=== PATIENT | female | born 1995 | race Caucasian/White ===

== ENCOUNTER 2018-09-29 09:45 | Outpatient (CLI) | payer BC, SELFPAY ==
[2018-09-29 10:21] VITALS: BMI 30.6
[2018-09-29 10:36] LABS: ROM Internal Control Test YES-OK TO RESULT pt. (Internal QC); ROM Patient Test Negative (Negative)
--- NOTE | 2018-09-29 23:47 | OB.TRI.NOTE ---
History of Present Illness Date of Service: 09/29/18 Reason For Visit: R/O ROM Final ROSA: 10/13/18 Gestational age: 38 Weeks and 0 Days Allergies morphine Allergy (Verified 01/04/17 15:40) Other Laboratory Studies: Laboratory Tests 09/29/18 Range/Units 10:10 Vag Amniotic Fld Detect Negative (Negative) NST - FHR Rate Baby A Baseline: 125 Variability:: Moderate Accelerations:: 15 x 15 Decelerations:: Variable NST Reactive:: Yes Uterine Activity:: quiet Impression/Plan Reactive NST for false labor
== END 2018-09-29 10:50 | disposition home or self-care (01) ==
LOC: WPOUT 09:54 → WP 10-01 09:12
PROVIDERS: Family Provider Family Medicine; PCP Family Medicine; Visit Provider Obstetrics & Gynecology
DX: O47.1 False labor at or after 37 completed weeks of gestation (principal); Z3A.38 38 weeks gestation of pregnancy
CPT/HCPCS: 59025; 59050; 84112; 99218; G0378

== ENCOUNTER 2018-10-09 22:27 | Inpatient (IN) | payer BC, SELFPAY ==
[2018-10-09 23:01] VITALS: BMI 31.0
[2018-10-09] MEDS: Lactated Ringers 1,000 ML 50 ML IV (23:03)
[2018-10-09 23:20] LABS: Absolute Lymphocyte Count 2.06 X10^3/ul (0.83-4.51); Absolute Neutrophil Count 12.1 X10^3/uL (2.0-7.7); Basophil# 0.01 X10^3/uL; Basophil% 0.1 % (0-1); Eosinophil# 0.14 X10^3/uL; Eosinophils% 0.9 % (0-5); Hematocrit 33.8 % (37-47); Hemoglobin 10.8 g/dl (12.0-15.0); Lymphocyte # 2.06 X10^3/ul (4.0); Lymphocyte % 13.3 % (19-41); Mean Corpuscular Hgb 27.6 pg (27.0-32.0); Mean Corpuscular Volume 86.2 fL (81-99); Mean Platelet Vol. 9.1 fl (6.2-12.0); Monocyte# 1.09 X10^3/uL; Neutrophil # 12.09 X10^3/uL (2.7-7.7); Neutrophil % 78.1 % (47-70); Platelet Count 263 K/mm3 (150-450); RBC Distribution Width CV 13.7 % (11.6-14.6); RBC Distribution Width SD 43.1 fl (35.1-43.9); Red Blood Count 3.92 M/mm3 (4.2-5.4); White Blood Count 15.5 K/mm3 (4.4-11.0)
[2018-10-09 23:23] LABS: Differential Indicated SCAN CRITERIA MET; POSITIVE COUNT NO; POSITIVE DIFFERENTIAL NO; POSITIVE MORPHOLOGY YES
[2018-10-10] MEDS: Lactated Ringers 1,000 ML 50 ML IV ×3 (00:47→11:25)
[2018-10-10] MEDS: fentaNYL-bupivacaine (epidural) 100 ML BAG EPIDURAL ×3 (01:02→10:31)
[2018-10-10] MEDS: 0.9% Saline Lock 10 ML Syringe IV ×2 (04:47→13:27)
[2018-10-10] MEDS: Ondansetron 4 MG/2 ML Vial IV (04:47)
[2018-10-10] MEDS: Oxytocin 30 units/NS 500 ml 30 UNITS/500 ML IV.SOLN IV (07:11)
--- NOTE | 2018-10-10 08:33 | PCM.HP.OB ---
- Problem List (1) 39 weeks gestation of Status: Acute (2) Uterine contractions Status: Acute (3) Primiparous Status: Acute (4) Genital herpes Status: Acute (5) Choroid plexus cyst of fetus on ultrasound Status: Acute (6) Echogenic intracardiac focus of fetus on ultrasound Status: Acute History Date of Admission: 10/09/18 Final ROSA: 10/13/18 Gestational age: 39 Weeks and 4 Days History of this : This is a 23 year-old, G 1, P 0, at 39 weeks gestational age who presented in labor. Medical History: Medical History (Last Updated 10/10/18 @ 08:36 by Annalise Correa DO) Abnormal ultrasound O28.3 Genital herpes A60.00 History of wisdom tooth extraction K08.409 Surgical History: Surgical History (Last Updated 10/10/18 @ 08:36 by Annalise Correa DO) History of tonsillectomy Z90.89 Allergies morphine Allergy (Verified 10/09/18 23:02) Other Home Medications: Home Medications Multivitamin [Flintstones] 1 each PO DAILY 09/29/18 Valacyclovir HCl [Valtrex] 500 mg PO DAILY 09/29/18 Smoking Status: Never smoker Number of Fetus(es): 1 Heart Tracin/mod almita/+accels/+occasional early decel TOCO Analysis: Ctx's q 2-4 min with coupling History Past Pregnancies: Past Pregnancies Delivery Date Name GA/Weeks Outcome Route Weight Gender Labor Length Anesthesia Delivery Location Provider FOB Labs: GBS positive 36 wk growth scan: EFW 3247 g 86% Hgb 11.5, Plt 301 1 hr GTT 68 GC/CT neg UDS neg Sequential screen neg Syphilis NR RI Hep B neg HIV NR Urine cx neg US with bilateral choroid plexus cysts noted and an ECF Expected Infant Delivery Method: Spontaneous Vaginal Review of Systems Gynecological: Reports: - - +Ctx's Physical Exam General: Alert, No apparent distress HEENT: Atraumatic Lungs: - - No increased resp effort Abdomen: Gravid Extremities:: No edema Neurological: Neuro grossly intact MANAGER REGULATORY: Normal external genitalia Estimated gestational size: Appropriate for gestational size Presentation: Cephalic Cervix Dilation (cm): 8 - per supervisor area/Plan All Active Problems (Last Updated 10/10/18 @ 08:36 by Annalise Correa DO) 39 weeks gestation of (Acute) Uterine contractions (Acute) Primiparous (Acute) Genital herpes (Acute) Choroid plexus cyst of fetus on ultrasound (Acute) Echogenic intracardiac focus of fetus on ultrasound (Acute) This is a 23 year-old, G 1, P 0, at 39 weeks gestational age who was admitted overnight in labor. - Was started on pitocin given she has been 8 cm dilated for several hours - Possible OP position, continue with position changes - GBS positive, PCN - S/p epidural - Routine intrapartum care
--- NOTE | 2018-10-10 08:46 | HP.PCM_ITS ---
- Problem List (1) 39 weeks gestation of Status: Acute (2) Uterine contractions Status: Acute (3) Primiparous Status: Acute (4) Genital herpes Status: Acute (5) Choroid plexus cyst of fetus on ultrasound Status: Acute (6) Echogenic intracardiac focus of fetus on ultrasound Status: Acute History Date of Admission: 10/09/18 Final ROSA: 10/13/18 Gestational age: 39 Weeks and 4 Days History of this : This is a 23 year-old, G 1, P 0, at 39 weeks gestational age who presented in labor. Medical History: Medical History (Last Updated 10/10/18 @ 08:36 by Annalise Correa DO) Abnormal ultrasound O28.3 Genital herpes A60.00 History of wisdom tooth extraction K08.409 Surgical History: Surgical History (Last Updated 10/10/18 @ 08:36 by Annalise Correa DO) History of tonsillectomy Z90.89 Allergies morphine Allergy (Verified 10/09/18 23:02) Other Home Medications: Home Medications Multivitamin [Flintstones] 1 each PO DAILY 09/29/18 Valacyclovir HCl [Valtrex] 500 mg PO DAILY 09/29/18 Smoking Status: Never smoker Number of Fetus(es): 1 Heart Tracin/mod almita/+accels/+occasional early decel TOCO Analysis: Ctx's q 2-4 min with coupling History Past Pregnancies: Past Pregnancies Delivery Date Name GA/Weeks Outcome Route Weight Gender Labor Length Anesthesia Delivery Location Provider FOB Labs: GBS positive 36 wk growth scan: EFW 3247 g 86% Hgb 11.5, Plt 301 1 hr GTT 68 GC/CT neg UDS neg Sequential screen neg Syphilis NR RI Hep B neg HIV NR Urine cx neg US with bilateral choroid plexus cysts noted and an ECF Expected Infant Delivery Method: Spontaneous Vaginal Review of Systems Gynecological: Reports: - - +Ctx's Physical Exam General: Alert, No apparent distress HEENT: Atraumatic Lungs: - - No increased resp effort Abdomen: Gravid Extremities:: No edema Neurological: Neuro grossly intact [employer] SERVICE SUPERVISOR: Normal external genitalia Estimated gestational size: Appropriate for gestational size Presentation: Cephalic Cervix Dilation (cm): 8 - per title coordinator/Plan All Active Problems (Last Updated 10/10/18 @ 08:36 by Annalise Correa DO) 39 weeks gestation of (Acute) Uterine contractions (Acute) Primiparous (Acute) Genital herpes (Acute) Choroid plexus cyst of fetus on ultrasound (Acute) Echogenic intracardiac focus of fetus on ultrasound (Acute) This is a 23 year-old, G 1, P 0, at 39 weeks gestational age who was admitted overnight in labor. - Was started on pitocin given she has been 8 cm dilated for several hours - Possible OP position, continue with position changes - GBS positive, PCN - S/p epidural - Routine intrapartum care
[2018-10-10] MEDS: Oxytocin 30 units/NS 500 ml 30 UNITS/500 ML IV.SOLN 334 UNITS IV (11:49)
--- NOTE | 2018-10-10 12:09 | PCM.OPRPT ---
Problem List (1) 39 weeks gestation of Status: Acute (2) Uterine contractions Status: Acute (3) Primiparous Status: Acute (4) Genital herpes Status: Acute (5) Choroid plexus cyst of fetus on ultrasound Status: Acute (6) Echogenic intracardiac focus of fetus on ultrasound Status: Acute Report of Operation Date of Procedure: 10/10/18 Pre-Operative Diagnosis: 39 week gestation, spontaneous labor Post-Operative Diagnosis: As above Surgery/Procedure Performed:: Description of Surgical Findings:: Patient complete and pushing for less than 1 hour. Head delivered MEÑO, followed by shoulders and body without any force or delay. VMI delivered atraumatically and placed on mother's abdomen. Light meconium noted. Cord clamped and cut after 60 sec delay by FOB. Placenta delivered intact with fundal massage. Pitocin started. Placenta normal appearing with a 3 vessel cord. Uterus explored and no retained products noted. Lower uterine segment slightly boggy, and firmed with uterine massage. Bleeding hemostatic. Bilateral labial lacerations and a right 1st degree vaginal laceration noted, and repaired in usual fashion with 3-0 vicryl. Bleeding hemostatic. EBL 250 cc. Type of Anesthesia:: Epidural Specimen's removed: Placenta Drains: Hardy catheter Estimated Blood Loss (mL): 250 Description of Procedure: See above for description of procedure under surgical findings Grafts/Implants Used: None - Complications None - Admit VTE Documentation VTE Present on Admission: No VTE Mechan Device Prophylaxis: None VTE Pharm Prophylaxis ordered?: No Vaginal Delivery Maternal Presentation: Active Labor Amniotic Membrane Rupture Type: Spontaneous Amniotic Fluid Description: Clear - Clear upon rupture, Lightly stained meconium - At time of delivery Final ROSA: 10/13/18 Gestational age: 39 Weeks and 4 Days Date of Procedure: 10/10/18 Pre-Operative Diagnosis: 39 weeks, spontaneous labor Post-Operative Diagnosis: 39 weeks, spontaneous labor Surgery/ Procedure Performed: Spontaneous Vaginal Delivery Type of Anesthesia: Epidural Presentation: MEÑO Placental Delivery Description: Expressed Cord Vessel Description: 3 Vessels Cord Entanglement: None Drain: Hardy to straight drain Estimated Blood Loss: 250 Infant A gender: Male (1 minute): 9 (5 minute): 9 Episiotomy Description: None Laceration: Vaginal Extension/lac Medications given after delivery: IV Pitocin Complications: None
[2018-10-10] MEDS: Oxytocin 30 units/NS 500 ml 30 UNITS/500 ML IV.SOLN 167 UNITS IV (12:19)
[2018-10-10 16:30] VITALS: BP 120/57; PULSE 87; RESP 16; TEMP 36.4; O2SAT 97
[2018-10-10] MEDS: Ibuprofen 600 MG Tablet PO (16:43)
[2018-10-10 21:05] VITALS: BP 104/68; PULSE 75; RESP 18; TEMP 36.1; O2SAT 99
[2018-10-10] MEDS: Acetaminophen 500 MG Tablet 1000 MG PO (21:14)
[2018-10-11 00:45] VITALS: BP 84/42; PULSE 73; RESP 18; TEMP 36.4; O2SAT 97
[2018-10-11 04:23] VITALS: BP 100/54; PULSE 68; RESP 18; TEMP 36.7; O2SAT 97
[2018-10-11] MEDS: Senna/Docusate Sodium 1 Tablet PO (07:38)
[2018-10-11] MEDS: Ibuprofen 600 MG Tablet PO (07:39)
[2018-10-11 08:16] VITALS: BP 100/87; PULSE 90; RESP 18; TEMP 36.4; O2SAT 96
--- NOTE | 2018-10-11 09:26 | PCM.PN.OB ---
Patient Problems: Active and Suspected Problems (Last Updated 10/10/18 @ 08:36 by Annalise Correa DO) 39 weeks gestation of (Acute) Uterine contractions (Acute) Primiparous (Acute) Genital herpes (Acute) Choroid plexus cyst of fetus on ultrasound (Acute) Echogenic intracardiac focus of fetus on ultrasound (Acute) Subjective: Pt doing well. Ambulating and voiding without difficulty. Lianet reg diet without N/V. Denies CP, SOB, lightheadedness, dizziness, leg pain. Lochia normal. She desires to go home today - Physical Exam General: Alert, No apparent distress HEENT: Atraumatic Lungs: - - No increased resp effort Abdomen: Soft, - - ATTP, FF Extremities: No edema, No Calf Tenderness Skin: No rashes Neurological: Neuro grossly intact Psych/Mental Status: Normal Affect, Appropriate Vital Signs Temp Pulse Resp BP Pulse Ox 97.5 F L 90 18 100/87 H 96 10/11/18 08:16 10/11/18 08:16 10/11/18 08:16 10/11/18 08:16 10/11/18 08:16 Oxygen Delivery Method Room Air Weight: 186 lb 9.6 oz Body Mass Index (BMI) 31.0 Intake and Output for Last 24 Hours 10/09/18 10/10/18 10/11/18 23:59 23:59 23:59 Intake Total 4791 / 4791 Output Total 3200 / 3200 Balance 1591 / 1591 Medical Necessity - Tobacco Use Smoking Status: Never smoker Assessment/Plan All Active Problems (Last Updated 10/10/18 @ 08:36 by Annalise Correa DO) 39 weeks gestation of (Acute) Uterine contractions (Acute) Primiparous (Acute) Genital herpes (Acute) Choroid plexus cyst of fetus on ultrasound (Acute) Echogenic intracardiac focus of fetus on ultrasound (Acute) PPD#1 s/p - Doing well today and pt desires to go home - D/c today and discharge instructions reviewed
--- NOTE | 2018-10-11 09:29 | DCINST_ITS ---
Discharge Diet: No Restrictions Discharge Activity: May Drive, May Shower, May Take a Tub Bath May resume sexual activity in: 6 weeks Weight Bearing Status: Full weight bearing Lifting Restrictions: None Call your doctor if you observe: Fever of 101 or Higher, Inability to urinate, Inability to have a bowel movement, Using more than one pad per hour, Shortness of breath, Dizziness, Chest pain, Increased palpitations (irregular heartbeat), Calf discomfort, Uncontrolled pain Cleanse incision/area with: Soap & Water Additional Instructions: If you experience any of the following, contact your healthcare provider. * Bleeding that soaks a pad every hour for 2 hours * Fever 100.4 or higher * Unrelieved incision or abdominal pain * Swelling, redness, discharge or bleeding from your incision or episiotomy site * Your incision begins to separate * Problems urinating (including inability to urinate or burning while urinating). * Visual changes * Severe headache * Flu-like symptoms * Pain or redness in one of both of your breasts * Pain, warmth, tenderness or swelling in your legs, especially the calf area * Frequent nausea and vomiting * Symptoms of depression or anxiety If you experience any of the following, call 911 or go to the nearest Emergency Room. * Chest pain * Problems breathing * Seizure activity * Partial or complete paralysis of a body part, slurred speech, weakness or drooping of the face, or a sudden inability to walk or hold your balance Allergies/Adverse Reactions: Allergies morphine Allergy (Verified 10/09/18 23:02) Other Medications to take at Discharge Multivitamin [Flintstones] 1 each PO DAILY 09/29/18 Valacyclovir HCl [Valtrex] 500 mg PO DAILY 09/29/18 Please Follow Up With: Annalise Correa DO When: 6 weeks for visit. In 1-2 weeks if you desire Primary Care Physician: Delores Vyas DO [Primary Care Provider] - Test Results: Test results from this visit will be discussed in further detail at your follow- up appointment, if applicable. Proposed Discharge Date: 10/11/18
[2018-10-11 13:52] VITALS: BP 106/58; PULSE 93; RESP 20; TEMP 36.5; O2SAT 94
== END 2018-10-11 15:00 | disposition home or self-care (01) | DRG 806 ==
PROVIDERS: Admitting Provider Obstetrics & Gynecology; Family Provider Family Medicine; PCP Family Medicine; Referring Provider Obstetrics & Gynecology; Visit Provider Obstetrics & Gynecology
DX: O42.92 Full-term premature rupture of membranes, unspecified as to length of time between rupture and onset of labor (principal); O98.32 Other infections with a predominantly sexual mode of transmission complicating childbirth; Z37.0 Single live birth; O99.824 Streptococcus B carrier state complicating childbirth; O77.0 Labor and delivery complicated by meconium in amniotic fluid; O70.0 First degree perineal laceration during delivery; A60.00 Herpesviral infection of urogenital system, unspecified; O35.8XX0 Maternal care for other (suspected) fetal abnormality and damage, not applicable or unspecified; Z3A.39 39 weeks gestation of pregnancy
CPT/HCPCS: 59025; 59050; 85025; 86850; 86900; 99218; J7120; A4216; G0378; J2405

== ENCOUNTER 2020-05-07 01:54 | Emergency (ER) | payer BC, SELFPAY ==
[2020-05-07 01:56] VITALS: BP 117/60; PULSE 95; RESP 16; TEMP 36.6; O2SAT 98; BMI 31.8
--- NOTE | 2020-05-07 02:06 | ED.VIS.GEN ---
History of Present Illness Chief Complaint: Nausea/Vomiting/Diarrhea Informant: Patient Narrative: Patient stated she ate rotisserie chicken around 6 PM and soon after started having nausea vomiting diarrhea. Approximately 10 episodes of each. Nonbloody. No sick contacts. Her stomach feels queasy and sore from puking. Denies any chronic medical problems. No other coronavirus symptoms. She tried some Pepto-Bismol but had difficulty keeping it down. She has been trying to drink Gatorade. Denies . Past Medical History - Allergies and Home Meds Allergies/Adverse Reactions: Allergies morphine Allergy (Verified 05/07/20 01:55) Other Primary Care Physician: Delores Mandel DO [Primary Care Provider] - Prior records reviewed: Yes Past Medical History: None Surgical History: - - Reviewed Smoking Status: Former smoker Alcohol: None Drugs: None Review of Systems General: Denies: Chills, Fever, Sweats Eyes: Denies: Visual changes - bilaterally, Diplopia ENT: Denies: Rhinorrhea, Sore throat Cardiovascular: Denies: Chest pain, Palpitations Respiratory: Denies: Dyspnea, Cough, Dyspnea on exertion Gastrointestinal: Reports: Nausea, Vomiting, Diarrhea. Denies: Abdominal pain, Melena, Hematochezia Genitourinary: Denies: Dysuria, Hematuria, Frequency Musculoskeletal: Denies: Back pain, Extremity Pain Skin: Denies: Rash, Wounds Neurological: Denies: Headache, Weakness, Numbness Physical Exam Vital Signs/Narrative: Vital Signs Temp Pulse Resp BP Pulse Ox 05/07/20 01:56 97.8 F 95 16 117/60 98 General: Well nourished, Well developed, No Acute Distress Head: Normocephalic, Atraumatic Eyes: Perrl, EOMI ENT: Moist mucous membranes, No rhinorrhea Neck: Supple, Nontender Cardiovascular: Regular rate, Regular rhythm, No murmurs Respiratory: No distress, CTA bilaterally, Chest nontender Abdomen: Soft, Nontender, Nondistended, Normal bowel sounds Back: Nontender, Normal Inspection Extremities: Nontender, No edema Skin: Normal color, No rash Neurological: Alert, Oriented x3, Cranial nerves II-XII grossly intact, Normal Strength, Normal Sensation Psychological: Normal affect, Normal Mood Diagnostic/Tx/Re-eval - Medical Decision Making given Toradol IV fluids Zofran Imodium. [place] much better after treatment. To follow-up as an outpatient. Likely food poisoning versus gastro enteritis. ED Disposition - Plan for ED Patient: Disposition: Home or Assisted Living Diagnosis: Food poisoning Instructions: ED Food Poison Or Gastroenteritis Prescriptions: Ondansetron [Zofran Odt] 8 mg PO Q8H PRN PRN #20 tab PRN Reason: Nausea Transmission Status: Received by [id number] Referrals: Delores Mandel DO [Primary Care Provider] -
[2020-05-07] MEDS: 0.9% Normal Saline 1,000 ML 1000 ML IV (03:16)
[2020-05-07] MEDS: Ondansetron 4 MG/2 ML Vial IV (03:17)
[2020-05-07] MEDS: Ketorolac 15 MG/ML Vial IV (03:17)
[2020-05-07] MEDS: Loperamide 2 MG Capsule 4 MG PO (04:08)
[2020-05-07 04:12] VITALS: BP 114/67; PULSE 81; RESP 18; O2SAT 99
== END 2020-05-07 04:15 | disposition home or self-care (01) ==
LOC: ED 02:41
PROVIDERS: Emergency Provider Emergency Medicine; PCP Family Medicine
DX: A05.9 Bacterial foodborne intoxication, unspecified (principal); Z87.891 Personal history of nicotine dependence
CPT/HCPCS: 96374; 96375; 99284; J7030; A4216; J2405

== ENCOUNTER 2020-07-14 09:47 | Outpatient (RCR) | payer BC, SELFPAY | END 2020-08-03 23:59 | LOC: EMPH 09:47 | PROVIDERS: Referring Provider Family Medicine Geriatric Medicine; Visit Provider Family Medicine Geriatric Medicine | DX: Z03.818 Encounter for observation for suspected exposure to other biological agents ruled out (principal) | CPT/HCPCS: 87426 ==

== ENCOUNTER 2020-11-21 10:14 | Emergency (ER) | payer BC, MEDICAID, SELFPAY ==
[2020-11-21 10:15] VITALS: BP 117/68; PULSE 88; RESP 14; TEMP 36.1; O2SAT 98; BMI 29.2
[2020-11-21 10:50] LABS: Absolute Lymphocyte Count 1.13 X10^3/uL (0.83-4.51); Absolute Neutrophil Count 2.9 X10^3/uL (2.0-7.7); Basophil# 0.03 X10^3/uL; Basophil% 0.6 % (0-1); Eosinophil# 0.04 X10^3/uL; Eosinophils% 0.9 % (0-5); Hematocrit 44.4 % (37-47); Hemoglobin 14.7 g/dL (12.0-15.0); Lymphocyte # 1.13 X10^3/ul (0.83-4.51); Lymphocyte % 24.4 % (19-41); Mean Corp Hgb Conc 33.1 g/dL (32-36); Mean Corpuscular Hgb 30.1 pg (27.0-32.0); Mean Platelet Vol. 8.6 fl (6.2-12.0); Monocyte# 0.53 X10^3/uL; Monocyte% 11.4 % (0-10); NRBC Flagged by Analyzer 0 % (0-5); Neutrophil # 2.89 X10^3/uL (2.7-7.7); Neutrophil % 62.5 % (47-70); Platelet Count 256 K/mm3 (150-450); RBC Distribution Width CV 11.6 % (11.6-14.6); RBC Distribution Width SD 38.6 fl (35.1-43.9); Red Blood Count 4.88 M/mm3 (4.2-5.4); White Blood Count 4.6 K/mm3 (4.4-11.0)
[2020-11-21] MEDS: Ketorolac 15 MG/ML Vial IV (10:50)
[2020-11-21] MEDS: 0.9% Normal Saline 1,000 ML 1000 ML IV (10:50)
[2020-11-21] MEDS: Ondansetron 4 MG/2 ML Vial IV (10:50)
[2020-11-21 10:57] LABS: Mucous, Urine 0 SEEN /hpf (<or=2+)
[2020-11-21 11:00] LABS: Color, Urine Yellow (Yellow); Glucose, Dipstick Normal (Normal); Ketone-Dipstick Negative (Negative); Leukocyte Esterase-Dipstick 25 /ul (Negative); Nitrite-Dipstick Negative (Negative); Occult Blood-Urine 250 /ul (Negative); Protein-Dipstick 15 mg/dl (Negative); Specific Gravity, Urine 1.015 (1.002-1.030); Urine Bilirubin Dipstick Negative (Negative); Urine Clarity Sl. Cloudy (Clear); Urine Urobilinogen Normal (Normal)
[2020-11-21 11:06] LABS: ALB/GLOB Ratio 1.1 RATIO (0.9-2.4); AST(SGOT) 20 U/L (15-37); Alanine Aminotransfer ALT/SGPT 19 U/L (13-56); Albumin, Serum 3.6 g/dL (3.2-5.0); Alkaline Phosphatase 61 U/L (45-117); Anion Gap 2 (5-15); BUN 9 mg/dL (7-18); BUN/Creat Ratio 12.6 RATIO (10-20); Calcium,Total 8.2 mg/dL (8.5-10.1); Chloride 107 mmol/L (98-107); Creatinine, Serum 0.71 mg/dL (0.55-1.02); EST Glomerular Filtration Rate 107 mL/min (>60); Est Glom Filt Rate - Afr Amer 130 mL/min (>60); Estimated Creatinine Clearance 109.94 ml/min; Globulin 3.3 g/dL (2.2-4.2); Glucose 91 mg/dL (74-106); Lipase 60 U/L (73-393); Potassium 3.3 mmol/L (3.5-5.1); Protein, Total 6.9 g/dL (6.4-8.2); Sodium Level 140 mmol/L (136-145)
[2020-11-21 11:06] LABS: Bacteria 1+ /hpf (None Seen); Red Blood Cells-Urine 25-50 SEEN /hpf (0-5); Squamous Epithelial Cells - UA 0-5 SEEN /hpf (5-10); White Blood Cells 0-5 SEEN /hpf (0-5)
[2020-11-21 11:07] LABS: Internal QC Validated? YES +Cl - CLEAR BKGD; Pregnancy, Urine Negative Negative
--- NOTE | 2020-11-21 11:13 | ED.VIS.GI ---
HPI HPI - GI History of Present Illness Chief Complaint: Flank Pain Narrative Narrative: Patient presenting for evaluation secondary to nausea vomiting diarrhea and flank pain. Patient states that in the last 24 hours she developed significant nausea and vomiting. She reports that she has had multiple episodes of nonbloody nonbilious emesis. Patient also states that she has had multiple episodes of loose watery diarrhea. Patient states that that was associated with some crampy abdominal pain, and now she has more of a suprapubic and right flank pain that will come and go with no exacerbating relieving factors. Unfortunately this also was associated with the patient having an onset of her menses. She states that she has very irregular periods because she has the Nexplanon implant. Patient states that this menses is slightly heavier than typical. Patient denies presence of fevers she denies any sick contact she denies any recent antibiotic exposures hospital admissions assisted exposures or recent travel. Review of systems is otherwise negative. [facility] Medical History Abnormal ultrasound Genital herpes Home Medications ondansetron 8 mg PO Q8H PRN PRN #20 tab 05/07/20 [Rx Last Taken Unknown] naproxen 500 mg PO BID PRN #20 tab 11/21/20 [Rx Last Taken Unknown] ondansetron 4 mg PO Q8H PRN PRN #10 tab 11/21/20 [Rx Last Taken Unknown] Allergy/AdvReac Type Severity Reaction Status Date / Time morphine Allergy Other Verified 11/21/20 10:15 Surgical History History of tonsillectomy History of wisdom tooth extraction Social History Smoking Status: Former smoker ROS ROS ED Constitutional Constitutional ED: Denies chills or fever(s) ENT ENT ED: Denies sore throat Cardiovascular Cardiovascular: Denies chest pain Respiratory/Chest Respiratory/Chest: Denies cough or dyspnea Gastrointestinal Gastrointestinal: Reports abdominal pain, diarrhea, nausea and vomiting Genitourinary Genitourinary ED: Reports other Details: Vaginal bleeding and onset of menses Musculoskeletal Musculoskeletal: Denies myalgias Integumentary Denies rash Neurologic Neurologic: Denies paresthesias or weakness Psychiatric Psychiatric: Denies depression Endocrine Endocrinology: Denies polyuria Hematologic/Lymphatic Hematologic/Lymphatic: Denies easy bleeding or easy bruising Allergic/Immunologic Allergic/Immunologic ED: Denies urticaria EXAM Physical Exam Const Vital Signs: 11/21/20 10:15 Temperature 96.9 F L Temperature Source Temporal Pulse Rate 88 Respiratory Rate 14 Blood Pressure 117/68 Blood Pressure Mean 84 Pulse Ox 98 Oxygen Delivery Method Room Air Positive well nourished and well developed Constitutional Narrative: Well-appearing age-appropriate female sitting upright in the bed no acute distress General Appearance ED: well developed and NAD HEENT Reports dry mucous membranes HEENT Narrative: Mildly dry mucous membranes normocephalic and atraumatic Mouth ED: Yes dry mucous membranes Mouth: dry mucous membranes Eyes EOMs intact bilaterally General Eye ED: Negative for pale conjunctiva or scleral icterus Neck no lymphadenopathy and supple Resp normal respiratory effort and clear to auscultation bilaterally Cardio regular rate, regular rhythm, no murmurs and peripheral pulses 2+ throughout GI non-distended and no masses GI Narrative: Minimal suprapubic tenderness is noted no real laterality, no guarding or rebound tenderness noted. No palpable masses. Palpation: soft; Negative for guarding, rigid or rebound tenderness present Back/Spine no CVA tenderness Extremity full ROM General Extremety ED: Negative for edema General Extremity: Negative for edema Neuro moves all extremities and no sensory deficits noted Sensorium / Orientation: alert, oriented to person, oriented to place and oriented to time Motor Exam: strength 5/5 throughout Psych mental status grossly normal Skin Rashes: no rashes MDM MDM MDM Narrative Medical decision making narrative: Patient presented secondary to nausea and vomiting. She did complain of some abdominal pain this was mainly suprapubic, not really feel that this is a presentation of a kidney stone and do not feel that imaging is indicated. Patient was given Toradol and Zofran and had improvement on reevaluation at 1115. She was given a liter normal saline. CBC was unremarkable no leukocytosis or shift. Chemistry showed modest hypokalemia at 3.3 with maintenance of renal function normal hepatic function normal lipase. Urinalysis does show some blood consistent with the patient's menses no signs of infection. This point I believe the patient likely has gastroenteritis which coincided with the onset of her menses. Patient's I feel at this time does not require imaging and is stable and appropriate for discharge with a course of Zofran and Naprosyn. She was given return instructions. Patient was discharged in stable condition. Lab Data Labs: Laboratory Results - last 24 hr 11/21/20 11/21/20 11/21/20 10:40 10:40 10:50 WBC 4.6 RBC 4.88 Hgb 14.7 Hct 44.4 MCV 91.0 MCH 30.1 MCHC 33.1 RDW Std Deviation 38.6 RDW Coeff of Zafar 11.6 Plt Count 256 MPV 8.6 Immature Gran % (Auto) 0.200 Neut % (Auto) 62.5 Lymph % (Auto) 24.4 [place] % (Auto) 11.4 H Eos % (Auto) 0.9 Baso % (Auto) 0.6 Absolute Neuts (auto) 2.9 Absolute Lymphs (auto) 1.13 Nucleated RBC % 0 Sodium 140 Potassium 3.3 L Chloride 107 Carbon Dioxide 31.0 Anion Gap 2 L BUN 9 Creatinine 0.71 Estim Creat Clear Calc 109.94 Est GFR (MDRD) Af Amer 130 Est GFR (MDRD) Non-Af 107 BUN/Creatinine Ratio 12.6 Glucose 91 Calcium 8.2 L Total Bilirubin 0.50 AST 20 ALT 19 Alkaline Phosphatase 61 Total Protein 6.9 Albumin 3.6 Globulin 3.3 Albumin/Globulin Ratio 1.1 Lipase 60 L Urine Color Yellow Urine Clarity Sl. Cloudy Urine pH 6.0 Ur Specific [place] 1.015 Urine Protein 15 H Urine Glucose (UA) Normal Urine Ketones Negative Urine Occult Blood 250 H Urine Nitrite Negative Urine Bilirubin Negative Urine Urobilinogen Normal Ur Leukocyte Esterase 25 H Urine RBC 25-50 SEEN Urine WBC 0-5 SEEN Ur Squamous Epith Cells 0-5 SEEN Urine Bacteria 1+ Urine Mucus 0 SEEN Urine Test Negative Discharge Plan Triage Chief Complaint: Flank Pain ED Provider: Jorge L Montiel Dx/Rx/DC Orders Clinical Impression: Gastroenteritis Instructions: ED Gastroenteritis, Noninfectious Prescriptions: New ondansetron 4 mg tablet,disintegrating 4 mg PO Q8H PRN PRN (Reason: Nausea) Qty: 10 RF: 0 naproxen 500 mg tablet 500 mg PO BID PRN Qty: 20 RF: 0 No Action ondansetron 4 MG tablet 8 mg PO Q8H PRN PRN (Reason: Nausea) Qty: 20 RF: 0 Primary Care Provider: Delores Mandel Referrals: Delores Mandel, DO [Primary Care Provider] - 3-5 Days if not improving Disposition Disposition: Home, Self Care
[2020-11-21 12:25] VITALS: PULSE 72; RESP 15; O2SAT 99
== END 2020-11-21 12:28 | disposition home or self-care (01) ==
PROVIDERS: Emergency Provider Emergency Medicine; PCP Family Medicine
DX: K52.9 Noninfective gastroenteritis and colitis, unspecified (principal); Z87.891 Personal history of nicotine dependence
CPT/HCPCS: 80053; 81001; 81025; 83690; 85025; 96374; 96375; 99283; J2405

== ENCOUNTER 2021-09-25 00:49 | Emergency (ER) | payer MEDICAID, SELFPAY ==
[2021-09-25 00:50] VITALS: BP 111/69; PULSE 90; RESP 18; TEMP 36.5; O2SAT 95; BMI 34.4
--- NOTE | 2021-09-25 01:00 | ED.VIS.GI ---
HPI HPI - GI History of Present Illness Chief Complaint: Nausea/Vomiting/Diarrhea Informant: patient Abdominal Pain/Flank Pain Onset: Today (About 6-8 hours) Context: Gradual Onset Timing: Continuous Quality: Cramping Location: Diffuse (Across periumbilical area without radiation or migration) Current Severity: Mild Maximum Severity: Mild Worsened by: Nothing Relieved by: Nothing Nausea/Vomiting/Emesis GI Symptom: Positive for Nausea and Vomiting Onset: Today Quality: Positive for Nonbilious; Negative for Blood streaks, Coffee ground and Hematemesis Severity: Severe Diarrhea/Melena/Hematochezia GI Symptom: Positive for Diarrhea; Negative for Melena and Hematochezia Onset: Today Stool Quality: Positive for Loose and Watery; Negative for Mucous, Black and BRB per rectum Severity: Moderate Associated Symptoms Associated Symptoms: Negative for Dysuria, Frequency, Hematuria and Urgency Narrative Narrative: Patient with vomiting and diarrhea all evening and night, having trouble keeping any fluids down because of the vomiting. No fevers. No syncope. Periumbilical abdominal pain has been constant, no worse and no better with anything in particular. Went to a local indoor water park in [place] recently, did not have any suspicious foods or undercooked meats there, no travel out of the country or to the region recently, had 1 glass of wine a day before the onset of symptoms but no other significant alcohol intake. No prior abdominal surgeries. Not that she knows of. No urinary symptoms. No known sick contacts. No recent antibiotics for anything. [facility] Medical History Abnormal ultrasound Genital herpes Home Medications dicyclomine 20 mg PO Q6H PRN PRN #20 capsule 09/25/21 [Rx Last Taken Unknown] ondansetron 8 mg PO Q8H PRN PRN #20 tab 09/25/21 [Rx Last Taken Unknown] Allergy/AdvReac Type Severity Reaction Status Date / Time morphine Allergy Other Verified 11/21/20 10:15 Surgical History History of tonsillectomy History of wisdom tooth extraction Social History (Updated 09/25/21 @ 01:[address] Kailash Hall MD) Smoking Status: Former smoker details: Occasional ROS ROS ED Constitutional Constitutional ED: Denies chills or fever(s) Eyes Eyes: Denies change in vision or diplopia ENT ENT ED: Denies rhinorrhea or sore throat Cardiovascular Cardiovascular: Denies chest pain or palpitations Respiratory/Chest Respiratory/Chest: Denies cough or dyspnea Gastrointestinal Gastrointestinal: Reports as per HPI, abdominal pain, diarrhea, nausea and vomiting Genitourinary Genitourinary ED: Denies dysuria or hematuria Musculoskeletal Musculoskeletal: Denies back pain or neck pain Integumentary Denies abscess or rash Neurologic Neurologic: Denies headache(s), paresthesias or weakness Psychiatric Psychiatric: Denies anxiety or suicidal thoughts EXAM Physical Exam Const Vital Signs: 09/25/21 00:50 Temperature 97.7 F L Temperature Source Oral Pulse Rate 90 Respiratory Rate 18 Blood Pressure 111/69 Blood Pressure Mean 83 Pulse Ox 95 Oxygen Delivery Method Room Air Positive well nourished and well developed General Appearance ED: well developed and NAD HEENT Reports moist mucous membranes normocephalic and atraumatic Eyes PERRL and EOMs intact bilaterally Neck full ROM and supple Resp normal respiratory effort and clear to auscultation bilaterally Cardio regular rate, regular rhythm and no murmurs Rate: Negative for tachycardic GI non-distended GI Narrative: Mild tenderness epigastrium and throughout lower abdomen, nonfocal otherwise. No guarding or rebound tenderness. Auscultation: normoactive bowel sounds Palpation: soft Back/Spine no CVA tenderness General Back: other FROM Extremity normal to inspection General Extremety ED: Negative for edema, pulses abnormal or tenderness General Extremity: Negative for edema or pulses abnormal Neuro oriented x3, CN's II-XII intact bilaterally and no sensory deficits noted Sensorium / Orientation: awake and alert Motor Exam: strength 5/5 throughout Skin no rashes or lesions noted and no wounds MDM MDM MDM Narrative Medical decision making narrative: Symptoms are more consistent with gastroenteritis, but with the upper abdominal pain and tenderness, I ran labs with liver enzymes and lipase, this was all normal except for low potassium at 3.2. Her is negative. She was treated with IV fluids and Zofran, and dicyclomine. She felt much better on reevaluation passed an oral fluid challenge without any emesis, and she was given a potassium pill. I do not think we need to prescribe that for her, if we can control her symptoms I think she will replace potassium on her own as she resumes normal diet. Supportive care advised at this time, she is comfortable discharge home and feels much better. Lab Data Attestation: I reviewed the patient's lab results. Labs: Laboratory Results - last 24 hr 09/25/21 09/25/21 09/25/21 01:14 01:14 01:14 WBC 7.7 RBC 4.32 Hgb 13.5 Hct 38.6 MCV 89.4 MCH 31.3 MCHC 35.0 RDW Std Deviation 35.7 RDW Coeff of Zafar 10.9 L Plt Count 221 MPV 8.6 Immature Gran % (Auto) 0.100 Neut % (Auto) 77.4 H Lymph % (Auto) 13.7 L Bradford % (Auto) 7.1 Eos % (Auto) 1.4 Baso % (Auto) 0.3 Absolute Neuts (auto) 6.0 Absolute Lymphs (auto) 1.06 Nucleated RBC % 0 Sodium 140 Potassium 3.2 L Chloride 110 H Carbon Dioxide 26.0 Anion Gap 4 L BUN 14 Creatinine 0.68 Estim Creat Clear Calc 113.80 Est GFR (MDRD) Af Amer 136 Est GFR (MDRD) Non-Af 112 BUN/Creatinine Ratio 20.6 H Glucose 89 Calcium 8.3 L Total Bilirubin 0.90 AST 13 L ALT 20 Alkaline Phosphatase 48 Total Protein 6.2 L Albumin 3.6 Globulin 2.6 Albumin/Globulin Ratio 1.4 Lipase 77 Serum , Qual NEGATIVE Discharge Plan Triage Chief Complaint: Nausea/Vomiting/Diarrhea ED Provider: Kailash Hall Dx/Rx/DC Orders Clinical Impression: Gastroenteritis, Acute upper abdominal pain Instructions: Viral Gastroenteritis Prescriptions: New ondansetron [ondansetron] 4 MG tablet 8 mg PO Q8H PRN PRN (Reason: Nausea) Qty: 20 RF: 0 dicyclomine 10 MG capsule 20 mg PO Q6H PRN PRN (Reason: abdominal discomfort) Qty: 20 RF: 0 Primary Care Provider: Delores Mandel Referrals: Delores Mandel DO [Primary Care Provider] - 3-5 Days if not improving Disposition Disposition: Home, Self Care
[2021-09-25] MEDS: Ondansetron 4 MG/2 ML Vial IV (01:12)
[2021-09-25] MEDS: 0.9% Normal Saline 1,000 ML 999 ML IV (01:12)
[2021-09-25] MEDS: Dicyclomine 10 MG Capsule 20 MG PO (01:13)
[2021-09-25 01:19] LABS: Absolute Lymphocyte Count 1.06 X10^3/uL (0.83-4.51); Basophil# 0.02 X10^3/uL; Basophil% 0.3 % (0-1); Eosinophil# 0.11 X10^3/uL; Eosinophils% 1.4 % (0-5); Hematocrit 38.6 % (37-47); Hemoglobin 13.5 g/dL (12.0-15.0); Lymphocyte # 1.06 X10^3/ul (0.83-4.51); Lymphocyte % 13.7 % (19-41); Mean Corpuscular Hgb 31.3 pg (27.0-32.0); Mean Corpuscular Volume 89.4 fL (81-99); Mean Platelet Vol. 8.6 fl (6.2-12.0); Monocyte# 0.55 X10^3/uL; Monocyte% 7.1 % (0-10); NRBC Flagged by Analyzer 0 % (0-5); Neutrophil # 5.97 X10^3/uL (2.7-7.7); Neutrophil % 77.4 % (47-70); Platelet Count 221 K/mm3 (150-450); RBC Distribution Width CV 10.9 % (11.6-14.6); RBC Distribution Width SD 35.7 fl (35.1-43.9); Red Blood Count 4.32 M/mm3 (4.2-5.4); White Blood Count 7.7 K/mm3 (4.4-11.0)
[2021-09-25 01:36] LABS: ALB/GLOB Ratio 1.4 RATIO (0.9-2.4); AST(SGOT) 13 U/L (15-37); Alanine Aminotransfer ALT/SGPT 20 U/L (13-56); Albumin, Serum 3.6 g/dL (3.2-5.0); Alkaline Phosphatase 48 U/L (45-117); Anion Gap 4 (5-15); BUN 14 mg/dL (7-18); BUN/Creat Ratio 20.6 RATIO (10-20); Calcium,Total 8.3 mg/dL (8.5-10.1); Chloride 110 mmol/L (98-107); Creatinine, Serum 0.68 mg/dL (0.55-1.02); EST Glomerular Filtration Rate 112 mL/min (>60); Est Glom Filt Rate - Afr Amer 136 mL/min (>60); Globulin 2.6 g/dL (2.2-4.2); Glucose 89 mg/dL (74-106); Lipase 77 U/L (73-393); Potassium 3.2 mmol/L (3.5-5.1); Protein, Total 6.2 g/dL (6.4-8.2); Sodium Level 140 mmol/L (136-145)
[2021-09-25 01:48] LABS: Internal QC Validated? YES +Cl - CLEAR BKGD; Pregnancy, Serum, hCG Quali. NEGATIVE Negative
[2021-09-25] MEDS: Potassium Chloride Oral Tablet 20 MEQ PO (02:16)
[2021-09-25 02:40] VITALS: BP 108/56; PULSE 78; RESP 15; O2SAT 99
== END 2021-09-25 02:40 | disposition home or self-care (01) ==
PROVIDERS: Emergency Provider Emergency Medicine; PCP Family Medicine; Visit Provider Emergency Medicine
DX: K52.9 Noninfective gastroenteritis and colitis, unspecified (principal); R10.10 Upper abdominal pain, unspecified; Z87.891 Personal history of nicotine dependence
CPT/HCPCS: 80053; 83690; 84703; 85025; 96361; 96374; 99284; J7030; A4216; J2405

== ENCOUNTER 2022-01-21 01:51 | Emergency (ER) | payer MEDICAID, SELFPAY ==
[2022-01-21 01:52] VITALS: BP 127/69; PULSE 98; RESP 18; TEMP 36.6; O2SAT 97; BMI 29.5
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
[2022-01-21] MEDS: Ibuprofen 600 MG Tablet PO (02:27)
[2022-01-21] MEDS: Amox/Clavulanate 875 MG Tablet PO (02:27)
[2022-01-21] MEDS: Diphth,Pertuss(Acell),Tet Vac 0.5 ML Vial IM (02:32)
== END 2022-01-21 02:50 | disposition home or self-care (01) ==
PROVIDERS: Emergency Provider Emergency Medicine; PCP Family Medicine; Visit Provider Emergency Medicine
DX: S09.90XA Unspecified injury of head, initial encounter (principal); Z87.891 Personal history of nicotine dependence; Z79.899 Other long term (current) drug therapy; Y04.8XXA Assault by other bodily force, initial encounter
CPT/HCPCS: 90715; 96372; 99282